=== PATIENT | female | born 1935 | race Hispanic/Latino ===

== ENCOUNTER 2017-09-09 15:45 | Emergency (ER) | payer MEDICARE ==
[2017-09-09 15:48] VITALS: TEMP 98.4; BMI 25.6
[2017-09-09] MEDS ORDERED: Tdap Vaccine 0.5 ml Vial (10-64 yrs) IM ONE ×2 (15:55→17:23)
--- NOTE | 2017-09-09 16:12 | ED PDOC ---
HPI: Trauma/Fall - HPI Time Seen by Provider: 09/09/17 15:47 Chief Complaint (Nursing): Trauma Chief Complaint (Provider): Trauma History Per: Patient History/Exam Limitations: no limitations Onset/Duration Of Symptoms: Days (x2) Additional Complaint(s): 82 year old female presents to the ED with daughter for evaluation of a head injury. Patient states that two nights ago, she woke up from her sleep and while groggily walking to the bathroom, was hit in the head by a falling metal shoe rack from her bedroom door. Initially, she notes she was fine, but reports increased bruising to the left eye orbit, and a bout of dizziness (now resolved - did not reoccur) she experienced this morning prompted her to visit her PMD, who then sent her to the ED for Head/Facial CTs. Patient also notes sustaining a bruise to her right knee during the incident. She denies taking any anticoagulants and also took no medications for symptoms prior to arrival. Otherwise, (-) LOC (-)current dizziness or headache, (-) visual changes, (-) chest/abdominal pain (-) nausea, (-) vomiting. Tetanus not up to date. PMD: [facility] Past Medical History Reviewed: Historical Data, Nursing Documentation, Vital Signs Vital Signs: Last Vital Signs Temp 98.4 F 09/09/17 15:46 Pulse 95 H 09/09/17 15:46 Resp 16 09/09/17 15:46 BP 158/63 H 09/09/17 15:46 Pulse Ox 96 09/09/17 15:46 - Medical History PMH: Diabetes, HTN, Hypercholesterolemia - Surgical History Other surgeries: hysterectomy - Family History Family History: States: Other Other Family History: brain cancer- sister - Social History Current smoker - smoking cessation education provided: No Alcohol: None Drugs: Denies - Immunization History Hx Tetanus Toxoid Vaccination: No - Allergies Allergies/Adverse Reactions: Allergies Allergy/AdvReac Type Severity Reaction Status Date / Time No Known Allergies Allergy Verified 09/09/17 15:49 Review of Systems ROS Statement: Except As Marked, All Systems Reviewed And Found Negative Eyes: Negative for: Vision Change Gastrointestinal: Negative for: Nausea, Vomiting Skin: Positive for: Bruising (left orbit; right knee) Neurological: Negative for: Headache, Dizziness Physical Exam - Reviewed Nursing Documentation Reviewed: Yes Vital Signs Reviewed: Yes - Physical Exam Comments: GENERAL APPEARANCE: Patient is awake, alert, oriented x 3, in no acute distress , resting comfortably. Patient is ambulating in ED with a steady gait. SKIN: Warm, dry; (-) cyanosis. HEAD: (-) swelling and tenderness, with no palpable bony defect. EYES: (-) conjunctival pallor, (-) scleral icterus, (-) nystagmus. (+) diffuse ecchymosis to left eye orbit, (+) mild tenderness to lateral left eye orbit. (+ ) scabbed 1cm abrasion just superior to lateral aspect of left eyebrow with mild surrounding ecchymosis. EOMI and painless. ENMT: Mucous membranes moist. Nose: (-) tenderness. No oral trauma. Pharynx clear. Airway patent: (-) stridor. Full ROM of mandible without pain. NECK: Supple, FROM (-) paracervical tenderness, (-) vertebral tenderness, (-) lymphadenopathy. CHEST AND RESPIRATORY: (-) rales, (-) rhonchi, (-) wheezes; breath sounds equal bilaterally. Respirations even and nonlabored. HEART AND CARDIOVASCULAR: (-) irregularity; (-) murmur ABDOMEN AND GI: Soft; (-) tenderness (-) guarding (-) distention. BACK: (-) midline tenderness. EXTREMITIES: (-) deformity (+) faint ecchymosis to anterior right knee with FROM (-) tenderness. NEURO AND PSYCH: GCS=15. Mental status as above. Has full memory of episode; enrolled nurse : Pupils equal & reactive. (-) facial asymmetry. Tongue and uvula midline. Strength 5/5 in all extremities. No gross sensory deficits. Speech clear (-) aphasia (-) focal deficit. - ECG O2 Sat by Pulse Oximetry: 96 (RA) Pulse Ox Interpretation: Normal Medical Decision Making Medical Decision Making: Time: 1550 Initial Impression: facial contusion vs fracture, head injury Initial Plan: --CT head w/o contrast --CT maxillofacial w/o contrast --Tetanus booster --Patient declined medication in ED. --Re-evaluation 1708 CT head FINDINGS: HEMORRHAGE: No intracranial hemorrhage. BRAIN: No mass effect or edema. Mild atrophy. Minimal chronic periventricular white matter ischemic change. No evidence of acute infarct. Right frontal dural based calcification 1.7 cm greatest dimension, possible meningioma. 8 mm right frontal dural base calcification, possible meningioma. VENTRICLES: Unremarkable. No hydrocephalus. CALVARIUM: Unremarkable. PARANASAL SINUSES: Unremarkable as visualized. No significant inflammatory changes. MASTOID AIR CELLS: Unremarkable as visualized. No inflammatory changes. OTHER FINDINGS: None. IMPRESSION: No intracranial hemorrhage. Mild atrophy and chronic white matter ischemic change. Two dural-based calcifications which may represent small meningiomas. 1720 CT Maxillofacial FINDINGS: NASAL BONES: Unremarkable. ORBITS: No fracture. Left lateral/supraorbital soft tissue swelling consistent with contusion. No intraorbital hemorrhage. Globes are rounded and symmetric. PARANASAL SINUSES/ MASTOIDS: Clear. MAXILLA: Unremarkable. MANDIBLE/ TEMPOROMANDIBULAR JOINTS: Unremarkable. SKULL BASE: Heterogeneous sclerosis of the skullbase and of the entire visualized calvarium suspicious for widespread sclerotic metastasis. TEMPORAL BONES: Middle ears and mastoid grossly unremarkable. OTHER FINDINGS: None. IMPRESSION: No evidence of facial fracture. Left lateral/supraorbital contusion without kirsten hematoma. 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 1725 Case discussed with ED physician Arron. In light of CT results, consult was placed to family practice resident. 1755 Dr. Issa is at bedside with patient and patient's daughter. 1810 Dr Issa arranging outpatient follow up with clinic for further evaluation. Patient to follow up as directed. On re-evaluation, patient offers no additional complaints. On exam, patient remains AAOx3, in no acute distress. On exam, neck is supple, lungs CTA, cardiac RRR, neuro exam shows no focal findings. Repeat BP: 140/71 Repeate HR: 74 VSS, stable for discharge. Diagnostic results d/w the patient in great detail. Dx of facial contusion, head injury d/w the patient. Based on history, exam and diagnostic results plan will be for discharge and outpatient follow up as arranged. Advised to follow up with primary care physician in 1-2 days without fail. Return to the emergency room at any time for any new or worsening symptoms. Patient states she fully agrees with and understands discharge instructions. States that she agrees with the plan and disposition. Verbalized and repeated discharge instructions and plan. I have given the patient opportunity to ask any additional questions. Scribe Attestation: Documented by Jennifer Quevedo, acting as a scribe for Susy Cortez PA-C. Provider Scribe Attestation: All medical record entries made by the Scribe were at my direction and personally dictated by me. I have reviewed the chart and agree that the record accurately reflects my personal performance of the history, physical exam, medical decision making, and the department course for this patient. I have also personally directed, reviewed, and agree with the discharge instructions and disposition. Disposition - Clinical Impression Clinical Impression: Contusion of face, Head injury - Patient ED Disposition Is Patient to be Admitted: No Counseled Patient/Family Regarding: Studies Performed, Diagnosis, Need For Followup, Rx Given - Disposition Referrals: Sheldon Valle MD [Resident] - Disposition: Routine/Home Disposition Time: 18:13 Condition: STABLE Additional Instructions: FOLLOW UP WITH PMD DIRECTED. RETURN TO ED WITH ANY NEW OR WORSENING SYMPTOMS. Instructions: Black Eye, Contusion (DC), Minor Head Injury, Closed Head Injury (DC) Forms: [employer] (Indonesian) Print Language: UPPER SORBIAN - POA Present On Arrival: Falls Or Trauma
--- NOTE | 2017-09-09 17:11 | CT ---
Date of service: 09/09/2017 PROCEDURE: CT HEAD WITHOUT CONTRAST. HISTORY: s/p fall COMPARISON: None available. TECHNIQUE: Axial computed tomography images were obtained through the head/brain without intravenous contrast. Radiation dose: Total exam DLP = 731.08 mGy-cm. This CT exam was performed using one or more of the following dose reduction techniques: Automated exposure control, adjustment of the mA and/or kV according to patient size, and/or use of iterative reconstruction technique. FINDINGS: HEMORRHAGE: No intracranial hemorrhage. BRAIN: No mass effect or edema. Mild atrophy. Minimal chronic periventricular white matter ischemic change. No evidence of acute infarct. Right frontal dural based calcification 1.7 cm greatest dimension, possible meningioma. 8 mm right frontal dural base calcification, possible meningioma. VENTRICLES: Unremarkable. No hydrocephalus. CALVARIUM: Unremarkable. PARANASAL SINUSES: Unremarkable as visualized. No significant inflammatory changes. MASTOID AIR CELLS: Unremarkable as visualized. No inflammatory changes. OTHER FINDINGS: None. IMPRESSION: No intracranial hemorrhage. Mild atrophy and chronic white matter ischemic change. Two dural-based calcifications which may represent small meningiomas.
--- NOTE | 2017-09-09 17:21 | CT ---
Date of service: 09/09/2017 PROCEDURE: CT MAXILLOFACIAL BONES WITHOUT CONTRAST HISTORY: s/p fall COMPARISON: None available. TECHNIQUE: Contiguous axial CT images of the maxillofacial bones were obtained. Coronal and sagittal reformats were generated. Radiation dose: Total exam DLP = 783.50 mGy-cm. This CT exam was performed using one or more of the following dose reduction techniques: Automated exposure control, adjustment of the mA and/or kV according to patient size, and/or use of iterative reconstruction technique. FINDINGS: NASAL BONES: Unremarkable. ORBITS: No fracture. Left lateral/supraorbital soft tissue swelling consistent with contusion. No intraorbital hemorrhage. Globes are rounded and symmetric. PARANASAL SINUSES/ MASTOIDS: Clear. MAXILLA: Unremarkable. MANDIBLE/ TEMPOROMANDIBULAR JOINTS: Unremarkable. SKULL BASE: Heterogeneous sclerosis of the skullbase and of the entire visualized calvarium suspicious for widespread sclerotic metastasis. TEMPORAL BONES: Middle ears and mastoid grossly unremarkable. OTHER FINDINGS: None. IMPRESSION: No evidence of facial fracture. Left lateral/supraorbital contusion without kirsten hematoma. 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
[2017-09-09 18:29] VITALS: BP 140/71; PULSE 74; RESP 15; O2SAT 96
== END 2017-09-09 18:29 | disposition home or self-care (01) ==
LOC: H.ER 15:45
DX: S00.83XA Contusion of other part of head, initial encounter (principal); S05.12XA Contusion of eyeball and orbital tissues, left eye, initial encounter; S80.01XA Contusion of right knee, initial encounter; S09.90XA Unspecified injury of head, initial encounter; W19.XXXA Unspecified fall, initial encounter; Y92.002 Bathroom of unspecified non-institutional (private) residence as the place of occurrence of the external cause; E11.9 Type 2 diabetes mellitus without complications; E78.00 Pure hypercholesterolemia, unspecified; G56.00 Carpal tunnel syndrome, unspecified upper limb; I10 Essential (primary) hypertension; Z90.710 Acquired absence of both cervix and uterus

== ENCOUNTER 2018-01-14 14:08 | Emergency (ER) | payer MEDICARE, OTHER ==
[2018-01-14 14:08] VITALS: BMI 25.6
[2018-01-14] MEDS ORDERED: Lidocaine 1% w Epi 1:100,000 Inj IJ STA (14:36)
[2018-01-14] MEDS ORDERED: Lidocaine 1% w Epi 1:100,000 Inj ONE (14:39)
[2018-01-14] MEDS ORDERED: Tetanus/Diphtheria Toxoids 0.5 ml Syringe IM ONE ×2 (15:49→16:25)
--- NOTE | 2018-01-14 15:58 | ED PDOC ---
HPI: General Adult Time Seen by Provider: 01/14/18 14:33 Chief Complaint (Nursing): Abnormal Skin Integrity Chief Complaint (Provider): Abnormal Skin Integrity History Per: Patient History/Exam Limitations: no limitations Onset/Duration Of Symptoms: Hrs Current Symptoms Are (Timing): Still Present Additional Complaint(s): Jacoby Cardoza is an 82 year old female with a past medical history of hypertension and diabetes who is presenting to the ED for evaluation of injury/laceration to right knee s/p fall in bathroom an hour prior to arrival. Patient states that she tripped and hit her right knee on the tile but denies any head injury. She cannot recall her last tetanus and offers no other medical complaints at this time. PMD: none provided Past Medical History Reviewed: Historical Data, Nursing Documentation, Vital Signs Vital Signs: Last Vital Signs Temp 98.3 F 01/14/18 14:26 Pulse 98 H 01/14/18 14:26 Resp 16 01/14/18 14:26 BP 145/75 01/14/18 14:26 Pulse Ox 95 01/14/18 14:26 - Medical History PMH: Diabetes, HTN, Hypercholesterolemia - Surgical History Surgical History: No Surg Hx - Family History Family History: States: Unknown Family Hx - Social History Current smoker - smoking cessation education provided: No Alcohol: None Drugs: Denies - Immunization History Hx Tetanus Toxoid Vaccination: No - Home Medications Home Medications: Ambulatory Orders Medication Instructions Recorded Cephalexin [Keflex] 500 mg PO BID #14 capsule 01/14/18 - Allergies Allergies/Adverse Reactions: Allergies Allergy/AdvReac Type Severity Reaction Status Date / Time No Known Allergies Allergy Verified 09/09/17 15:49 Review of Systems ROS Statement: Except As Marked, All Systems Reviewed And Found Negative Musculoskeletal: Positive for: Leg Pain (knee injury) Physical Exam - Reviewed Nursing Documentation Reviewed: Yes Vital Signs Reviewed: Yes - Physical Exam Appears: Positive for: Well, Non-toxic, No Acute Distress Head Exam: Positive for: ATRAUMATIC, NORMAL INSPECTION, NORMOCEPHALIC Skin: Positive for: Normal Color Extremity: Positive for: Other (3 cm linear laceration to right patella ). Negative for: Pedal Edema, Deformity, Swelling Neurologic/Psych: Positive for: Alert, Oriented. Negative for: Motor/Sensory Deficits - ECG O2 Sat by Pulse Oximetry: 95 (RA) Medical Decision Making Medical Decision Making: Time: 14:36 Plan: --X-Ray Right Knee --Lidocaine with epi 5 ml IJ --Tetanus 0.5 ml IM --Laceration Repair Scribe Attestation: Documented by Gina Rodas, acting as a scribe for Margie Oglesby PA-C. Provider Scribe Attestation: All medical record entries made by the Scribe were at my direction and personally dictated by me. I have reviewed the chart and agree that the record accurately reflects my personal performance of the history, physical exam, medical decision making, and the department course for this patient. I have also personally directed, reviewed, and agree with the discharge instructions and disposition. Procedures - Laceration/Wound Repair Right Knee Wound Length (cm): 3 Wound's Depth, Shape: linear Anesthesia: Lidocaine w/ Epi Volume Anesthetic (ccs): 4 Suture Size/Type: 3:0, proline Number of Sutures: 3 Wound Complexity: Simple Sterile Dressing Applied?: Yes Disposition - Clinical Impression Clinical Impression: Knee laceration, Knee contusion, Tetanus toxoid vaccination administered at current visit - Disposition Disposition: Routine/Home Disposition Time: 16:30 Condition: GOOD Additional Instructions: Do not get wet for 24 hours. Keep clean and dry with antibiotic ointment. Suture removal in 14 days. Prescriptions: Cephalexin [Keflex] 500 mg PO BID #14 capsule Instructions: Laceration Repair, Contusion (DC) Forms: [employer] (Mexican)
[2018-01-14 16:46] VITALS: BP 122/78; PULSE 78; RESP 18; TEMP 98; O2SAT 98
--- NOTE | 2018-01-14 17:56 | RAD ---
Date of service: 01/14/2018 PROCEDURE: Right Knee Radiographs. HISTORY: injury COMPARISON: None. FINDINGS: BONES: Normal. No fracture. JOINTS: Normal. No osteoarthritis. JOINT EFFUSION: None. OTHER FINDINGS: None. IMPRESSION: Normal radiographs of the right knee.
== END 2018-01-14 16:44 | disposition home or self-care (01) ==
LOC: H.ER 14:08
DX: S81.011A Laceration without foreign body, right knee, initial encounter (principal); S80.00XA Contusion of unspecified knee, initial encounter; Z23 Encounter for immunization; E11.9 Type 2 diabetes mellitus without complications; I10 Essential (primary) hypertension; E78.00 Pure hypercholesterolemia, unspecified; W01.0XXA Fall on same level from slipping, tripping and stumbling without subsequent striking against object, initial encounter; Y92.002 Bathroom of unspecified non-institutional (private) residence as the place of occurrence of the external cause